=== PATIENT | female | born 1980 | race Caucasian/White ===

== ENCOUNTER 2017-09-05 23:59 | Emergency (ER) | payer BC, OTHER ==
[2017-09-06] MEDS ORDERED: predniSONE 10 MG Tab PO ONE (00:33)
[2017-09-06] MEDS ORDERED: Codeine/guaiFENesin 100mg-10 MG/5 ML Soln 118 ML Bottle PO ONE (00:33)
--- NOTE | 2017-09-06 03:05 | ER ---
DATE SEEN: 09/05/2017 CHIEF COMPLAINT: Cough. HISTORY OF PRESENT ILLNESS: This is a 37-year-old female with a cough for 3 weeks. She saw Alva Abbott at the clinic. She was given amoxicillin, but the cough continues with productive of phlegm, sometimes bloody. No fever has been reported. She has a history of asthma and she feels that the inhaler is not helping. REVIEW OF SYSTEMS: Chest pain when she coughs. No fever. MEDICATIONS: Reviewed. ALLERGIES: None. SOCIAL HISTORY: Does not smoke. PHYSICAL EXAMINATION: VITAL SIGNS: Afebrile, normotensive. EARS, NOSE AND THROAT: Negative. NECK: Supple. CHEST: Clear. CARDIOVASCULAR: Normal. IMPRESSION: Acute bronchitis. TREATMENT: 1. Robitussin with codeine 10 mL every 6 hours. 2. Prednisone 20 mg b.i.d. 3. Follow up in the office in 1 to 2 days. TIME SEEN: 0030 hours. /[id number] ANTOINETTE/ROSANA
== END 2017-09-06 00:40 | disposition home or self-care (01) ==
LOC: FB.ED 23:59
DX: J20.9 Acute bronchitis, unspecified (principal)
CPT/HCPCS: 99283; A9270-GY

== ENCOUNTER 2018-02-17 19:15 | Emergency (ER) | payer BC, MEDICAID ==
--- NOTE | 2018-02-17 19:48 | EDM.PDOC ---
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 Pt feels now nauseated and c/o of abd. and pelvic pain. No vag bleed or discharge. 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 Pt could ambulate fine. BP 112/75 HR 102 Puls ox 100% on RA Temp 98F Onset Date: 02/17/18 Onset Time: 02:30 Duration: Hour(s):, Getting Worse Location: Reports: Abdomen, Pelvis Quality: Reports: Ache, Dull, Pressure Severity: Moderate Improves with: Reports: Rest Worsens with: Reports: Movement Context: Reports: Trauma Associated Symptoms: Reports: Other (Nausea) mid abdomen Pain Score (Numeric/FACES): 5 - Related Data Allergies Allergy/AdvReac Type Severity Reaction Status Date / Time No Known Allergies Allergy Verified 02/17/18 19:29 Home Meds: Home Meds B12/Levomefolate Calcium/B-6 [Foltx Tablet] 1 tab PO DAILY 04/09/14 [History] Nitrofurantoin Monohyd/M-Cryst [Macrobid 100 mg Capsule] 100 mg PO BID #10 capsule 02/17/18 [Rx] Past Medical History Respiratory History: Reports: Asthma 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 History: Reports: - Past Surgical History Other HEENT Surgeries/Procedures: cyst in neck, wisdom tooth removed GI Surgical History: Reports: Cholecystectomy Other GI Surgeries/Procedures: Gastric bypass Social & Family History - Family History Family Medical History: Unobtainable - Caffeine Use Caffeine Use: Reports: Soda ED ROS GENERAL - Review of Systems Review Of Systems: See Below Constitutional: Reports: No Symptoms HEENT: Reports: No Symptoms Respiratory: Reports: No Symptoms Cardiovascular: Reports: No Symptoms Endocrine: Reports: No Symptoms GI/Abdominal: Reports: Abdominal Pain : Reports: No Symptoms Musculoskeletal: Reports: No Symptoms Skin: Reports: No Symptoms Neurological: Reports: No Symptoms Psychiatric: Reports: No Symptoms Hematologic/Lymphatic: Reports: No Symptoms Immunologic: Reports: No Symptoms ED EXAM, GI/ABD - Physical Exam Exam: See Below Exam Limited By: No Limitations General Appearance: Alert, WD/WN, Mild Distress Eyes: Bilateral: Normal Appearance Ears: Normal External Exam Nose: Normal Inspection Throat/Mouth: Normal Inspection, Normal Lips, Normal Teeth, Normal Voice, No Airway Compromise Head: Atraumatic, Normocephalic Neck: Normal Inspection, Supple, Non-Tender, Full Range of Motion Respiratory/Chest: No Respiratory Distress, Lungs Clear, Normal Breath Sounds, No Accessory Muscle Use, Chest Non-Tender Cardiovascular: Normal Peripheral Pulses, Regular Rate, Rhythm, No Edema, No Gallop, No JVD, No Murmur GI/Abdominal Exam: Normal Bowel Sounds, No Organomegaly, No Distention, No Abnormal Bruit, No Mass, Pelvis Stable, Tender (Female) Exam: Deferred Rectal (Female) Exam: Deferred Back Exam: Normal Inspection, Full Range of Motion Extremities: Normal Inspection, Normal Range of Motion, Non-Tender, No Pedal Edema Neurological: Alert, Oriented, CN II-XII Intact, Normal Cognition, Normal Gait, No Motor/Sensory Deficits Psychiatric: Normal Affect, Normal Mood Skin Exam: Warm, Dry, Intact, Normal Color, No Rash Lymphatic: No Adenopathy Course - Vital Signs Text/Narrative:: 37 y.o.w.f, 15 weeks , G2 P 1 AB0, came to the ed 16 hours after her daughter jumped onto her abd. Pt feels now nauseated and c/o of abd. and pelvic pain. No vag bleed or discharge. 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 Pt could ambulate fine. BP 112/75 HR 102 Puls ox 100% on RA Temp 98F PE: 15 wks , minor trauma to abdomen/pelvis Imaging: OB US: NL< FHT 143 Labs: UA: UTI with hematuria Impression: Minor abd trauma in a 15 wks woman, UTI Tx: Macrobid Reexam: Improved Plan: D/C with instructions Last Recorded V/S: Last Vital Signs Temp 36.7 C 02/17/18 19:15 Pulse 102 H 02/17/18 19:15 Resp 17 02/17/18 19:15 BP 112/75 02/17/18 19:15 Pulse Ox 100 02/17/18 19:15 - Orders/Labs/Meds Orders: Active Orders 24 hr Category Date Time Status OB 2 Or 3 Tri Sgl 1st Gest [US] Stat Exams 02/17/18 19:47 Taken UA W/MICROSCOPIC [URIN] Stat Lab 02/17/18 20:12 Ordered Labs: Laboratory Tests 02/17/18 Range/Units 20:12 Urine Color Yellow (YELLOW) Urine Appearance Slightly cloudy (CLEAR) Urine pH 5.0 (5.0-6.5) Ur Specific Flanagan 1.025 (1.010-1.025) Urine Protein Negative (NEGATIVE) mg/dL Urine Glucose (UA) Normal (NEGATIVE) mg/dL Urine Ketones Negative (NEGATIVE) mg/dL Urine Occult Blood Moderate H (NEGATIVE) Urine Nitrite Negative (NEGATIVE) Urine Bilirubin Negative (NEGATIVE) Urine Urobilinogen Normal (NEGATIVE) mg/dL Ur Leukocyte Esterase Large H (NEGATIVE) Urine RBC 10-20 H (0) Urine WBC 75-100 H (0) Ur Squamous Epith Cells Moderate H (NS,R,O) Urine Bacteria Many H (NS) Meds: Medications Discontinued Medications Generic Name Dose Route Start Last Admin Trade Name Freq PRN Reason Stop Dose Admin Nitrofurantoin Macrocrystals 100 mg 02/17/18 20:20 Macrobid PO 02/17/18 20:21 ONETIME ONE Departure - Departure Time of Disposition: 20:21 Disposition: Home, Self-Care 01 Condition: Good Clinical Impression: Qualifiers: Weeks of gestation: 15 weeks Qualified Code(s): Z3A.15 - 15 weeks gestation of UTI (urinary tract infection) Qualifiers: Urinary tract infection type: acute cystitis Blunt abdominal trauma Qualifiers: Encounter type: initial encounter Qualified Code(s): S39.81XA - Other specified injuries of abdomen, initial encounter - Discharge Information Prescriptions: Nitrofurantoin Monohyd/M-Cryst [Macrobid 100 mg Capsule] 100 mg PO BID #10 capsule Referrals: Austin Hodge MD [Primary Care Provider] - Forms: ED Department Discharge Additional Instructions: Please increase water intake, take Macrobid as recommended, F/U, come back if your symptoms get worse acutely - My Orders Last 24 Hours: My Active Orders 02/17/18 19:47 OB 2 Or 3 Tri Sgl 1st Gest [US] Stat 02/17/18 20:12 UA W/MICROSCOPIC [URIN] Stat - Assessment/Plan Last 24 Hours: My Active Orders 02/17/18 19:47 OB 2 Or 3 Tri Sgl 1st Gest [US] Stat 02/17/18 20:12 UA W/MICROSCOPIC [URIN] Stat
[2018-02-17] MEDS ORDERED: Nitrofurantoin Monohydrate/Macrocrystalline 100 MG Cap PO ONE (20:20)
--- NOTE | 2018-02-20 14:02 | US ---
INDICATION: Trauma. . ULTRASOUND, OB, LIMITED: COMPARISON: None. FINDINGS: A single live intrauterine is present. The placenta is anterior. No placental abnormality. Amniotic fluid volume appears to be within normal limits. Biparietal diameter 3.5 cm, dated to 16 weeks, 6 days. Head circumference 13 cm, dating to 16 weeks, 5 days. Heart rate is 145 BPM. No adnexal masses. IMPRESSION: 1. Single live intrauterine is present. 2. Placenta appears unremarkable, and the amniotic fluid volume appears to be within normal limits. MTDD
== END 2018-02-17 20:40 | disposition home or self-care (01) ==
LOC: FB.ED 19:15
DX: O9A.212 Injury, poisoning and certain other consequences of external causes complicating pregnancy, second trimester (principal); S39.81XA Other specified injuries of abdomen, initial encounter; O23.42 Unspecified infection of urinary tract in pregnancy, second trimester; Z3A.15 15 weeks gestation of pregnancy; W51.XXXA Accidental striking against or bumped into by another person, initial encounter
CPT/HCPCS: 76815; 81001; 87086; 87088; 99284; A9270; 76805; 87186

== ENCOUNTER 2018-02-25 21:57 | Emergency (ER) | payer BC, MEDICAID ==
--- NOTE | 2018-02-25 23:03 | EDM.PDOC ---
ED HPI GENERAL MEDICAL PROBLEM - General Chief Complaint: Headache Stated Complaint: HEADACHE/4 MONTHS Time Seen by Provider: 02/25/18 22:30 Source of Information: Reports: Patient, Old Records History Limitations: Reports: No Limitations - History of Present Illness INITIAL COMMENTS - FREE TEXT/NARRATIVE: Ifrah is 17 wks gestation, and reporting some headaches today. Headaches are frontal, aching, and not associated with photophobia, nausea, or swelling of extremties. She is concerned about hydration, and has been taking fluids. Her apartment is air conditioned. She has reported movement today. 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: Reports: Other (see below) Other 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: attempting to drink more at home Headache Pain Score (Numeric/FACES): 4 - Related Data Allergies Allergy/AdvReac Type Severity Reaction Status Date / Time No Known Allergies Allergy Verified 02/17/18 19:29 Home Meds: Home Meds B12/Levomefolate Calcium/B-6 [Foltx Tablet] 1 tab PO DAILY 04/09/14 [History] Nitrofurantoin Monohyd/M-Cryst [Macrobid 100 mg Capsule] 100 mg PO BID #10 capsule 02/17/18 [Rx] Pnv with Ca,No.72/Iron/Fa [Preplus Ca-Fe 27 mg-FA 1 mg Tb] 1 each PO DAILY 02/25 [History] Past Medical History Respiratory History: Reports: Asthma Gastrointestinal History: Reports: Gastritis, Other (See Below) Other Gastrointestinal History: past gastric bypass surgery 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: Neurological History: Reports: Migraines, Vertigo Psychiatric History: Reports: Other (See Below) Other Psychiatric History: past gastric by pass surgery - Past Surgical History Head Surgeries/Procedures: Reports: None Other HEENT Surgeries/Procedures: cyst in neck, wisdom tooth removed Cardiovascular Surgical History: Reports: None GI Surgical History: Reports: Cholecystectomy Other GI Surgeries/Procedures: Gastric bypass Female Surgical History: Reports: Section Social & Family History - Family History Family Medical History: Unobtainable - Caffeine Use Caffeine Use: Reports: Soda ED ROS GENERAL - Review of Systems Review Of Systems: ROS reveals no pertinent complaints other than HPI. - Physical Exam Exam: See Below Exam Limited By: No Limitations General Appearance: Alert, WD/WN, No Apparent Distress, Anxious Eye Exam: Bilateral Eye: EOMI, Normal Inspection, PERRL Ears: Normal External Exam Nose: Normal Inspection Throat/Mouth: Normal Inspection, Normal Lips, Normal Gums, Normal Oropharynx, Normal Voice Head Exam: Normocephalic Neck: Normal Inspection, Supple Respiratory/Chest: Lungs Clear, Normal Breath Sounds Cardiovascular: Regular Rate, Rhythm, No Murmur (Female) Exam: Enlarged Uterus (4 mos size, nontender, FHT 141) Rectal (Female) Exam: Deferred Neuro Exam (Abbreviated): Alert, Oriented, CN II-XII Intact, Normal Gait, Normal Reflexes, No Motor/Sensory Deficits Back Exam: Normal Inspection Extremities: Normal Inspection Psychiatric: Normal Affect, Anxious Skin Exam: Warm, Dry, Intact, Normal Color, No Rash Course - Vital Signs Text/Narrative:: Ifrah remained stable at the [facility] ED. Her UA noted some leuk esterase, WBC and RBCs. A UC was set up. She was advised hydration and Tylenol for headache sxs at this time. Last Recorded V/S: Last Vital Signs Temp 36.8 C 02/25/18 22:17 Pulse 89 02/25/18 22:17 Resp 20 02/25/18 22:17 BP 103/69 02/25/18 22:17 Pulse Ox 99 02/25/18 22:17 - Orders/Labs/Meds Orders: Active Orders 24 hr Category Date Time Status CULTURE URINE [RM] Stat Lab 02/25/18 23:44 Ordered URINALYSIS W/MICROSCOPIC [UA W/MICROSCOPIC] [URIN] Stat Lab 02/25/18 23:30 Ordered Labs: Laboratory Tests 02/25/18 Range/Units 23:30 Urine Color Yellow (YELLOW) Urine Appearance Clear (CLEAR) Urine pH 5.0 (5.0-6.5) Ur Specific Kila 1.025 (1.010-1.025) Urine Protein Negative (NEGATIVE) mg/dL Urine Glucose (UA) Normal (NEGATIVE) mg/dL Urine Ketones 15 H (NEGATIVE) mg/dL Urine Occult Blood Negative (NEGATIVE) Urine Nitrite Negative (NEGATIVE) Urine Bilirubin Small H (NEGATIVE) Urine Urobilinogen 1 H (NEGATIVE) mg/dL Ur Leukocyte Esterase Moderate H (NEGATIVE) Urine RBC 10-20 H (0) Urine WBC 5-10 (0) Ur Squamous Epith Cells Few H (NS,R,O) Urine Bacteria Moderate H (NS) Departure - Departure Time of Disposition: 23:47 Disposition: Home, Self-Care 01 Condition: Good Clinical Impression: Tension-type headache Qualifiers: Weeks of gestation: 17 weeks Qualified Code(s): Z3A.17 - 17 weeks gestation of - Discharge Information *PRESCRIPTION DRUG MONITORING PROGRAM REVIEWED*: Not Applicable *COPY OF PRESCRIPTION DRUG MONITORING REPORT IN PATIENT LILIANA: Not Applicable Referrals: Austin Hodge MD [Primary Care Provider] - Forms: ED Department Discharge - Problem List & Annotations (1) SNOMED Code(s): 93512781 Code(s): Z34.90 - ENCNTR FOR SUPRVSN OF NORMAL , UNSP, UNSP TRIMESTER Status: Acute Current Visit: Yes Annotation/Comment:: Hydration and Tylenol for sxs relief at this time. Qualifiers: Weeks of gestation: 17 weeks Qualified Code(s): Z3A.17 - 17 weeks gestation of (2) Tension-type headache SNOMED Code(s): 661227642 Code(s): G44.209 - TENSION-TYPE HEADACHE, UNSPECIFIED, NOT INTRACTABLE Status: Acute Current Visit: Yes Annotation/Comment:: Sxs cares. - Problem List Review Problem List Initiated/Reviewed/Updated: Yes - My Orders Last 24 Hours: My Active Orders 02/25/18 23:30 URINALYSIS W/MICROSCOPIC [UA W/MICROSCOPIC] [URIN] Stat 02/25/18 23:44 CULTURE URINE [RM] Stat - Assessment/Plan Last 24 Hours: My Active Orders 02/25/18 23:30 URINALYSIS W/MICROSCOPIC [UA W/MICROSCOPIC] [URIN] Stat 02/25/18 23:44 CULTURE URINE [RM] Stat Plan: Follow up with PCP regarding UC when results available.
== END 2018-02-26 00:18 | disposition home or self-care (01) ==
LOC: FB.ED 21:57
DX: O09.92 Supervision of high risk pregnancy, unspecified, second trimester (principal); O99.352 Diseases of the nervous system complicating pregnancy, second trimester; G44.209 Tension-type headache, unspecified, not intractable; Z3A.17 17 weeks gestation of pregnancy; Z79.899 Other long term (current) drug therapy
CPT/HCPCS: 81001; 87086; 99284